=== PATIENT | male | born 1960 | race Caucasian/White ===

== ENCOUNTER 2020-12-04 13:08 | Outpatient (CLI) | payer OTHER | END 2020-12-04 13:29 | disposition home or self-care (01) | LOC: SONOGRAMA 13:08 → MAMO-SONO 13:45 | PROVIDERS: ATTEND Urology | DX: N43.40 Spermatocele of epididymis, unspecified (principal); N40.0 Benign prostatic hyperplasia without lower urinary tract symptoms; N50.89 Other specified disorders of the male genital organs; R22.9 Localized swelling, mass and lump, unspecified ==